=== PATIENT | female | born 1960 | race Caucasian/White ===

== ENCOUNTER → 2017-01-31 | Outpatient (CLI) | payer BC ==
[2017-01-31 13:10] LABS: BASO % 0.4 %; BASO ABS # 0.03 K/uL (0-0.2); COMPLETE YES; EOS % 0.7 %; HEMATOCRIT 45.5 % (37-47); IG% 0.3 %; LYMPH % 18.1 %; LYMPH ABS # 1.31 K/uL (1.2-3.4); MEAN CELL VOLUME 89.2 fL (80-100); MEAN CORPUSCULAR HEMOGLOBIN 29.2 pg (25-34); MEAN CORPUSCULAR HGB CONC 32.7 g/dl (32-36); MEAN PLATELET VOLUME 10.3 fL (7.4-10.4); MONO % 6.6 %; NEUT % 73.9 %; PLATELET COUNT 214 K/uL (130-400); WHITE BLOOD COUNT 7.23 K/uL (4.8-10.8)
[2017-01-31 13:29] LABS: URINE APPEARANCE CLEAR (CLEAR); URINE BILIRUBIN NEG (NEG); URINE COLOR YELLOW; URINE EPITHELIAL CELL AUTO >30 /lpf (0-5); URINE NITRITE NEG (NEG); UROBILINOGEN NEG (NEG)
[2017-01-31 13:32] LABS: MANUAL MICROSCOPIC REQUIRED? NO; REVIEW REQ? NO
[2017-01-31 16:22] LABS: ALT/SGPT 32 U/L (12-78); AST/SGOT 12 U/L (15-37); BLOOD UREA NITROGEN 14 mg/dl (7-18); BUN/CREATININE RATIO 18.1 (10-20); CALCIUM 8.8 mg/dl (8.5-10.1); CARBON DIOXIDE 29 mmol/L (21-32); CHLORIDE 107 mmol/L (98-107); CREATININE 0.77 mg/dl (0.60-1.20); GLUCOSE 98 mg/dl (70-99); POTASSIUM 3.9 mmol/L (3.5-5.1); SODIUM 142 mmol/L (136-145)
[2017-01-31 16:35] LABS: ALKALINE PHOSPHATASE 97 U/L (45-117); CHOLESTEROL 187 mg/dl (0-200); CHOLESTEROL/HDL RATIO 3.9; HDL CHOLESTEROL 48 mg/dl; LDL CHOLESTEROL CALCULATED 111 mg/dl; TRIGLYCERIDES 141 mg/dl (0-150); VERY LOW DENSITY LIPOPROT CALC 28 mg/dl
== END | disposition home or self-care (01) ==
LOC: C.LABMFLN 13:59
PROVIDERS: ATTEND Physician Assistant
DX: Z00.00 Encounter for general adult medical examination without abnormal findings (principal); Z13.220 Encounter for screening for lipoid disorders; Z13.29 Encounter for screening for other suspected endocrine disorder; Z13.1 Encounter for screening for diabetes mellitus

== ENCOUNTER → 2017-01-31 | Outpatient (CLI) | payer BC | END | disposition home or self-care (01) | LOC: C.PAPS 15:09 | PROVIDERS: ATTEND Physician Assistant | DX: Z01.419 Encounter for gynecological examination (general) (routine) without abnormal findings (principal) ==

== ENCOUNTER → 2017-03-23 | Outpatient (CLI) | payer BC | END | disposition home or self-care (01) | LOC: C.LABMFLN 08:23 | PROVIDERS: ATTEND Physician Assistant | DX: E03.9 Hypothyroidism, unspecified (principal) ==

== ENCOUNTER → 2017-05-22 | Outpatient (CLI) | payer BC | END | disposition home or self-care (01) | LOC: C.LABMFLN 08:30 | PROVIDERS: ATTEND Physician Assistant | DX: E03.9 Hypothyroidism, unspecified (principal) ==

== ENCOUNTER → 2017-07-17 | Outpatient (CLI) | payer BC ==
--- NOTE | 2017-07-17 15:45 | MAMMOGRAPHY REPORT ---
BILATERAL DIGITAL SCREENING MAMMOGRAM TOMOSYNTHESIS WITH CAD: 07/17/2017 CLINICAL HISTORY: Routine screening. Patient has no complaints. TECHNIQUE: Breast tomosynthesis in addition to standard 2D mammography was performed. Current study was also evaluated with a Computer Aided Detection (CAD) system. COMPARISON: Comparison is made to exams dated: 07/11/2016 mammogram, 07/06/2015 mammogram, 05/06/2014 m ammogram, 04/19/2013 mammogram, 04/16/2012 mammogram, and 04/11/2011 mammogram - [facility] ter. BREAST COMPOSITION: The tissue of both breasts is almost entirely fatty. FINDINGS: The parenchymal pattern is unchanged. No developing mass, architectural distortion or clus ter of suspicious microcalcifications is seen in either breast. IMPRESSION: ACR BI-RADS CATEGORY 2: BENIGN There is no mammographic evidence of malignancy. A 1 year screening mammogram is recommended. The pa tient will receive written notification of the results. Approximately 10% of breast cancers are not detected with mammography. A negative mammographic report should not delay biopsy if a clinically suggestive mass is present. Cassie Walker M.D. ay/:07/17/2017 12:32:16 Distance Education Coordinator: Perla FLOWERS(Kandice)(Piotr)([place]), [facility] letter sent: Normal 1/2 BI-RADS Code: ACR BI-RADS Category 2: Benign
== END | disposition home or self-care (01) ==
LOC: C.MAMM 09:53
PROVIDERS: ATTEND Physician Assistant
DX: Z12.31 Encounter for screening mammogram for malignant neoplasm of breast (principal)

== ENCOUNTER → 2018-02-05 | Outpatient (CLI) | payer OTHER, BC ==
[~2018-02-05] MED LIST: ASPI81TA28 PO; LEVO50TA6 PO; MULT-1018 PO
[2018-02-05 12:34] LABS: BASO % 0.4 %; BASO ABS # 0.03 K/uL (0-0.2); EOS % 1.6 %; EOS ABS # 0.11 K/uL (0-0.5); HEMATOCRIT 45.5 % (37-47); HEMOGLOBIN 15.1 g/dL (12.0-16.0); IG# 0.02 K/uL (0.00-0.02); LYMPH % 25.7 %; LYMPH ABS # 1.82 K/uL (1.2-3.4); MEAN CORPUSCULAR HEMOGLOBIN 29.2 pg (25-34); MEAN CORPUSCULAR HGB CONC 33.2 g/dl (32-36); MEAN PLATELET VOLUME 10.4 fL (7.4-10.4); MONO % 5.6 %; NEUT % 66.4 %; NEUT ABS # 4.71 K/uL (1.4-6.5); PLATELET COUNT 250 K/uL (130-400); RED CELL DISTRIBUTION WIDTH CV 12.6 % (11.5-14.5); RED CELL DISTRIBUTION WIDTH SD 39.9 fL (36.4-46.3); WHITE BLOOD COUNT 7.09 K/uL (4.8-10.8)
[2018-02-05 13:30] LABS: ALBUMIN 3.8 gm/dl (3.4-5.0); ALT/SGPT 29 U/L (12-78); AST/SGOT 19 U/L (15-37); BLOOD UREA NITROGEN 17 mg/dl (7-18); CALCIUM 8.8 mg/dl (8.5-10.1); CARBON DIOXIDE 28 mmol/L (21-32); GLUCOSE 85 mg/dl (70-99); POTASSIUM 3.9 mmol/L (3.5-5.1); SODIUM 140 mmol/L (136-145)
[2018-02-05 13:39] LABS: ALKALINE PHOSPHATASE 93 U/L (45-117); TOTAL PROTEIN 7.6 gm/dl (6.4-8.2)
== END | disposition home or self-care (01) ==
LOC: C.LABMFLN 09:38
PROVIDERS: ATTEND Physician Assistant
DX: Z00.00 Encounter for general adult medical examination without abnormal findings (principal); E01.0 Iodine-deficiency related diffuse (endemic) goiter

== ENCOUNTER → 2018-02-13 | Outpatient (CLI) | payer OTHER, BC ==
--- NOTE | 2018-02-13 13:12 | DIAGNOSTIC IMAGING REPORT ---
THYROID ULTRASOUND CLINICAL HISTORY: Thyromegaly. COMPARISON STUDY: Thyroid ultrasound February 26, 2008. TECHNIQUE: Sonography of the thyroid gland was performed. FINDINGS: The right thyroid lobe measures 6.2 x 2.4 x 3 cm and the left thyroid lobe measures 5.1 x 1.9 x 2.1 cm. The gland is heterogeneous and enlarged. Multiple thyroid nodules are noted. The largest is a 2.4 x 1.9 x 1.6 cm isoechoic right isthmus junction nodule. This is similar in size to exam of February 25, 2018. Note is made of several echogenic cystic and solid right lobe nodules measure up to 1.6 x 1.4 x 1.4 cm. These were not evident on prior exam. No left lobe nodules are present. IMPRESSION: Enlarged, multinodular thyroid gland. No significant change in the dominant right isthmus nodules since exam of February 26, 2008. Two new right lobe thyroid nodules. These nodules are nonspecific but none demonstrate suspicious imaging characteristics. Electronically signed by: Isidro Moyer M.D. 02/13/2018 1:11 PM Dictated Date/Time: 02/13/2018 1:04 PM
== END | disposition home or self-care (01) ==
LOC: C.ULTR 11:48
PROVIDERS: ATTEND Physician Assistant
DX: E01.0 Iodine-deficiency related diffuse (endemic) goiter (principal)

== ENCOUNTER → 2018-05-18 | Outpatient (CLI) | payer OTHER, BC | END | disposition home or self-care (01) | LOC: C.LABMFLN 08:22 | PROVIDERS: ATTEND Physician Assistant | DX: E03.9 Hypothyroidism, unspecified (principal) ==

== ENCOUNTER 2019-10-12 03:28 | Observation (INO) ==
[2019-10-12] MEDS ORDERED: NITROGLYCERIN 2% OINTMENT 30GM TUBE EXT STA (03:47)
[2019-10-12] MEDS ORDERED: ASPIRIN CHEW 324 MG PO STA (03:48)
[2019-10-12 04:15] LABS: Basophils # (auto) 0.02 K/uL (0-0.2); Basophils % (auto) 0.2 %; Eosinophils # (auto) 0.06 K/uL (0-0.5); Eosinophils % (auto) 0.7 %; Hematocrit (blood only) 44.9 % (37-47); Hemoglobin 14.7 g/dL (12.0-16.0); Immature Granulocytes # (auto) 0.02 K/uL (0.00-0.02); Immature Granulocytes % (auto) 0.2 %; Lymphocytes # (auto) 1.06 K/uL (1.2-3.4); Lymphocytes % (auto) 13.1 %; Mean Corpuscular Hemoglobin 29.5 pg (25-34); Mean Corpuscular Hgb Conc 32.7 g/dL (32-36); Monocytes # (auto) 0.45 K/uL (0.11-0.59); Monocytes % (auto) 5.6 %; Neutrophils # (auto) 6.47 K/uL (1.4-6.5); Neutrophils % (auto) 80.2 %; Platelet Count 202 K/uL (130-400); RDW Coefficient of Variation 13.3 % (11.5-14.5); RDW Standard Deviation 43.4 fL (36.4-46.3); Red Blood Count 4.99 M/uL (4.2-5.4); White Blood Count 8.08 K/uL (4.8-10.8)
[2019-10-12 04:35] LABS: Albumin Level 3.8 gm/dl (3.4-5.0); BUN Creatinine Ratio 21.5 (10-20); Creatinine Clr Calc Pharmacy 103.4 ml/min; Est GFR (African American) 90.9; Est GFR (Non-African American) 78.4; Partial Thromboplastin Time 25.8 Seconds (21.0-31.0); Potassium 4.2 mmol/L (3.5-5.1); Prothrombin Time 10.4 Seconds (9.0-12.0)
[2019-10-12] MEDS ORDERED: LABETALOL HCL IV 5 MG/ML 20ML IV STA (04:36)
[2019-10-12] MEDS ORDERED: FUROSEMIDE 40 MG/4 ML VIAL IV STA (04:36)
[2019-10-12 04:41] LABS: Bilirubin,Total 0.8 mg/dl (0.2-1); Globulin 3.9 gm/dl (2.5-4.0); Total Protein 7.7 gm/dl (6.4-8.2); Troponin I 0.067 ng/ml (0-0.045)
[2019-10-12 05:26] LABS: Appearance Urine Clear (Clear); Bacteria Urine Automated Negative (Negative); Bilirubin Urine Negative (Negative); Blood Urine Negative (Negative); Cast Urine Automated 0 /lpf (0-5); Color Urine Yellow; Glucose Urine UA Negative (Negative); Ketones Urine Negative (Negative); Leukocyte Esterase Urine 1+ (Negative); Nitrite Urine Negative (Negative); Protein Urine 1+ (Negative); RBC Urine Automated 0-4 /hpf (0-4); Specific Gravity Urine 1.016 (1.000-1.030); Urobilinogen Urine Negative (Negative)
--- NOTE | 2019-10-12 07:23 | XRay Report ---
XR chest 1V portable CLINICAL HISTORY: Dyspnea COMPARISON STUDY: No previous studies for comparison. FINDINGS: Lung volumes are normal. There is no pneumothorax. There is right pleural effusion is noted . Diffuse interstitial thickening indicates moderate interstitial pulmonary edema. There is mild card iomegaly. Right hilar fullness is noted. IMPRESSION: 1. Moderate interstitial pulmonary edema. Trace right pleural effusion. 2. Right hilar fullness which is probably due to pulmonary vessels. However, this should be assessed on follow-up radiographs. ACT 112: Negative or not required by law. Electronically signed by: Isidro Moyer M.D. 10/12/2019 7:22 AM
[2019-10-12] MEDS ORDERED: ONDANSETRON INJ 2 MG/ML 2 ML VIAL IV PRN (11:37)
[2019-10-12] MEDS ORDERED: ACETAMINOPHEN 325 MG TAB PO PRN (11:37)
[2019-10-12] MEDS ORDERED: POLYETHYLENE (MIRALAX) 17 GM PACK PO PRN (11:37)
--- NOTE | 2019-10-12 12:10 | History & Physical Report ---
Date of Service October 12, 2019 Assessment & Plan (1) Hypertensive urgency: BP > 200/100 on admission with shortness of breath, pulmonary edema breathing much improved after Lasix and Labetalol BP still high at 166/100 patient gives history of having some white coat hypertension but BP always better at the end of her PCP visit no history of HTN has family h/o HTN, CAD with deaths at young ages (father 51 and brother 59) will start on Lopressor 25mg BID, first dose now follow BP check echocardiogram hopeful that BP will be better tomorrow, will likely d/c home (2) Pulmonary edema: likely due to uncontrolled hypertension responded well to Lasix 40mg IV, > 2000cc out since this morning re-dose Lasix 40mg IV now, watch for response check routing echo today History of Present Illness Chief Complaint: I could not catch my breath Primary Care Provider: Neyda Pitts PA-C 59 yo female with relatively no medical history, just obesity, presented to the ED with c/o dyspnea, getting worse over the past week. No history of shortness of breath, no chronic lung issues. No cough or fever with the dyspnea, no chest pain or pressure noted. She noticed that the dyspnea only occurred with exertion at first, progressed to dyspnea at rest. She was having difficulty sleeping due to the dyspnea, her son finally convinced her to come to the ED for evaluation. She does not smoke. She has a history of some white coat hypertension but no true HTN diagnosis. She denies any sick contacts recently. She has been eating a lot of foods high in salt and sweets around the holidays. In the ED her initial BP was > 200/100 and she had evidence of pulmonary edema on CXR. She received a dose of Lasix IV and Labetalol IV and had a brisk responts, diuresed > 2 liters. Her breathing started to improve after that. Her blood pressure also improved but was high at 160/100. Allergies Allergy/AdvReac Type Severity Reaction Status Date / Time No Known Allergies Allergy Verified 10/12/19 04:01 Home Medications Home Medications Medication Instructions Recorded Confirmed Type aspirin 81 mg PO QAM 07/12/19 10/12/19 History levothyroxine 100 mcg tablet 100 mcg PO QAM #90 tab 07/18/19 10/12/19 Rx Past Med/Surg History Medical History Hypothyroidism Osteoarthritis Surgical History History of bilateral tubal ligation Family History (Updated 10/12/19 @ 12:09 by Azael Coronado DO) Grandmother (Paternal) Family history of diabetes mellitus Father , from [place] at age 51 Coronary heart disease Brother , from [place] age 59 Coronary heart disease Other No family history of adverse response to anesthesia Social History Preferred Language: [place] Communication Ability: Effective Terminal Computer Operator Required: No Beliefs That Will Affect Care: None Current Living Situation: Spouse and Family Current Living Situation Comment: Lives with and 1 son Other Information That Helps Us Care for You: No Feels Safe at Home: Yes Safety Concerns: Feels Safe At This Time Smoking Status: Former smoker Do You Dip or Chew Tobacco: No ; Smoking End Date: 14yrs old for a month or two. ; Second Hand Exposure: No ; Tobacco Cessation Education Requested by Patient: No Hx Alcohol Use: No Hx Substance Use: No Review of Systems Review of Systems: All systems reviewed & are unremarkable except as noted in HPI & below Constitutional: no fever, no chills, no sweats, no fatigue, no weakness and no weight gain Respiratory: + dyspnea and + dyspnea on exertion; no wheezing Cardiovascular: + dyspnea, + dyspnea on exertion and + edema; no chest pain, no orthopnea and no syncope Gastrointestinal: no abdominal pain, no nausea, no vomiting, no constipation and no diarrhea/loose stools Genitourinary: no dysuria, no difficulty urinating, no urinary frequency, no urinary hesitancy and no hematuria Integumentary: no rash Neurologic: no unsteadiness, no tingling, no tremor(s), no seizure-like activity, no headache(s) and no confusion Physical Exam Constitutional: well developed, well nourished and + obese; no acute distress Eyes: PERRL, conjunctivae normal, anicteric sclerae ENMT: external ear and nose normal, oropharynx normal Neck: trachea midline, no thyromegaly Respiratory: normal respiratory effort, lungs clear to auscultation Cardiovascular: Rate/Rhythm: regular rate and regular rhythm Heart Sounds: normal S1 and normal S2 Vessels: no JVD Extremities: normal capillary refill and + edema (trace in lower legs, bilaterally) Gastrointestinal (Abdomen): normal bowel sounds, soft, nontender, no hepatosplenomegaly Musculoskeletal: no cyanosis or clubbing, extremities motor strength 5/5 Skin: no rashes, warm and dry Neurologic: patellar DTR's 2+ bilat, sensation intact and PERRL, EOMI, accommodation nl, no face palsy, no dysarthria Psychiatric: A+Ox3, euthymic affect Lymphatic: no cervical or axillary lymphadenopathy Results & Data Vital Signs (Past 12 Hours) Vital Signs Temp Pulse Pulse Resp BP BP Pulse Ox 10/12/19 11:38 36.4 C L 85 18 166/100 H 94 10/12/19 11:00 87 20 145/100 H 95 10/12/19 10:30 90 30 H 146/99 H 96 10/12/19 10:00 73 18 156/87 H 94 10/12/19 09:30 72 15 146/101 H 94 10/12/19 09:01 79 18 95 10/12/19 09:00 83 13 143/100 H 94 10/12/19 08:31 74 15 94 10/12/19 08:30 74 19 139/96 94 10/12/19 08:01 74 16 94 10/12/19 08:00 74 19 135/87 94 10/12/19 07:31 74 16 92 10/12/19 07:30 75 19 139/89 91 10/12/19 07:01 75 16 92 10/12/19 07:00 80 16 141/90 H 92 10/12/19 06:31 75 17 92 10/12/19 06:30 74 16 143/93 H 95 10/12/19 06:19 88 20 153/96 H 94 10/12/19 06:17 89 28 H 153/96 H 94 10/12/19 06:00 85 17 92 10/12/19 05:39 85 16 154/105 H 95 10/12/19 05:12 85 19 157/104 H 94 10/12/19 05:11 88 22 157/104 H 92 10/12/19 04:30 102 H 26 H 173/106 H 93 10/12/19 04:19 95 10/12/19 04:16 105 H 29 H 185/120 H 94 10/12/19 04:00 104 H 22 94 10/12/19 03:49 106 H 22 95 10/12/19 03:47 105 H 20 203/132 H 95 10/12/19 03:33 36.7 C 114 H 26 H 213/131 H 93 Laboratory Results Laboratory Results - last 24 hr 10/12/19 10/12/19 10/12/19 04:06 04:06 04:06 WBC 8.08 RBC 4.99 Hgb 14.7 Hct 44.9 MCV 90.0 MCH 29.5 MCHC 32.7 RDW Std Deviation 43.4 RDW Coeff of Tay 13.3 Plt Count 202 MPV 10.0 Immature Gran % (Auto) 0.2 Neut % (Auto) 80.2 Lymph % (Auto) 13.1 Mcintosh % (Auto) 5.6 Eos % (Auto) 0.7 Baso % (Auto) 0.2 Immature Gran # (Auto) 0.02 Neut # (Auto) 6.47 Lymph # (Auto) 1.06 L Mcintosh # (Auto) 0.45 Eos # (Auto) 0.06 Baso # (Auto) 0.02 PT 10.4 INR 1.0 APTT 25.8 PTT Ratio 1.0 Sodium 143 Potassium 4.2 Chloride 110 H Carbon Dioxide 29 Anion Gap 4.0 BUN 17 Creatinine 0.81 Est Cr Clr Drug Dosing 103.4 Est GFR ( Amer) 90.9 Est GFR (Non-Af Amer) 78.4 BUN/Creatinine Ratio 21.5 H Glucose 136 H Calcium 9.0 Total Bilirubin 0.8 AST 24 ALT 48 Alkaline Phosphatase 111 Troponin I 0.067 H* Total Protein 7.7 Albumin 3.8 Globulin 3.9 Albumin/Globulin Ratio 1.0 Urine Color Urine Appearance Urine pH Ur Specific [place] Urine Protein Urine Glucose (UA) Urine Ketones Urine Blood Urine Nitrite Urine Bilirubin Urine Urobilinogen Ur Leukocyte Esterase Urine WBC (Auto) Urine RBC (Auto) U Hyaline Cast (Auto) U Epithel Cells (Auto) Urine Bacteria (Auto) Hepatitis C Ab Screen 10/12/19 10/12/19 04:07 05:07 WBC RBC Hgb Hct MCV MCH MCHC RDW Std Deviation RDW Coeff of Tay Plt Count MPV Immature Gran % (Auto) Neut % (Auto) Lymph % (Auto) Mcintosh % (Auto) Eos % (Auto) Baso % (Auto) Immature Gran # (Auto) Neut # (Auto) Lymph # (Auto) Mcintosh # (Auto) Eos # (Auto) Baso # (Auto) PT INR APTT PTT Ratio Sodium Potassium Chloride Carbon Dioxide Anion Gap BUN Creatinine Est Cr Clr Drug Dosing Est GFR ( Amer) Est GFR (Non-Af Amer) BUN/Creatinine Ratio Glucose Calcium Total Bilirubin AST ALT Alkaline Phosphatase Troponin I Total Protein Albumin Globulin Albumin/Globulin Ratio Urine Color Yellow Urine Appearance Clear Urine pH 7.0 Ur Specific [place] 1.016 Urine Protein 1+ H Urine Glucose (UA) Negative Urine Ketones Negative Urine Blood Negative Urine Nitrite Negative Urine Bilirubin Negative Urine Urobilinogen Negative Ur Leukocyte Esterase 1+ H Urine WBC (Auto) 10-30 H Urine RBC (Auto) 0-4 U Hyaline Cast (Auto) 0 U Epithel Cells (Auto) 10-20 H Urine Bacteria (Auto) Negative Hepatitis C Ab Screen Neg Diagnostic Findings XR chest 1V portable CLINICAL HISTORY: Dyspnea COMPARISON STUDY: No previous studies for comparison. FINDINGS: Lung volumes are normal. There is no pneumothorax. There is right pleural effusion is noted. Diffuse interstitial thickening indicates moderate interstitial pulmonary edema. There is mild cardiomegaly. Right hilar fullness is noted. IMPRESSION: 1. Moderate interstitial pulmonary edema. Trace right pleural effusion. 2. Right hilar fullness which is probably due to pulmonary vessels. However, this should be assessed on follow-up radiographs. Medications Administered Current Inpatient Medications Acetaminophen (Tylenol) 650 mg PO Q4H PRN PRN Reason: Pain or Fever Stop: 11/11/19 11:36 Aspirin (Ecotrin Ectab) 81 mg PO QAM [facility] Stop: 11/11/19 11:36 Enoxaparin Sodium (Lovenox) 40 mg SQ DAILY [facility] Stop: 11/11/19 11:36 Furosemide 40 mg/ Syringe 4 mls @ 4 mls/min IV ONE ONE Stop: 10/12/19 12:05 Levothyroxine Sodium (Synthroid) 100 mcg PO DAILYBB [facility] Stop: 11/11/19 11:36 Metoprolol Tartrate (Lopressor) 25 mg PO BID [facility] Stop: 11/11/19 11:59 Ondansetron HCl (Zofran) 4 mg IV Q6H PRN PRN Reason: Nausea Stop: 11/11/19 11:36 Polyethylene Glycol (Miralax Powder Packet) 17 gm PO DAILY PRN PRN Reason: Constipation Stop: 11/11/19 11:36 Code Status & VTE Plan Code Status full code VTE Prophylaxis Plan VTE Prophylaxis will be ordered: Yes PG Care Time/CCT Total # of Minutes Spent Total Time Spent with Patient: Total time spent is greater than 50% in coordination of care (as documented) at patient's floor/unit and/or counseling patient:
[2019-10-12] MEDS: LEVOTHYROXINE SODIUM 100 MCG TABLET PO SCH (12:13)
[2019-10-12] MEDS: ASPIRIN 81 MG ECTAB PO SCH (12:13)
[2019-10-12] MEDS: ENOXAPARIN INJ 40 MG/0.4 ML SYR SQ SCH (12:13)
[2019-10-12] MEDS ORDERED: FUROSEMIDE 40 MG in SYRINGE 0 ML IV ONE (12:30)
[2019-10-12] MEDS ORDERED: PERFLUTREN LIPID MICROSPHERE (DEFINITY) IV ONE (12:55)
[2019-10-12] MEDS: METOPROLOL TARTRATE 25 MG TAB PO SCH ×2 (13:13→20:16)
--- NOTE | 2019-10-12 18:42 | Emergency Department Note ---
Entered by Ar Childress acting as a scribe for Nat Tan MD History of Present Illness General Chief complaint: Respiratory Problems Stated complaint: HARD TO BREATHE Time Seen by Provider: 10/12/19 03:40 Source: patient History of Present Illness Onset (ago): day(s) (couple) Location: chest Pain Consistency: + other (worsening) Maximum Pain Intensity: 0 Quality: + other (SOB) Exacerbated By: + other (lying flat) Associated symptoms: + denies other symptoms (recent trips) The patient is a 59 y/o female who presents to the ED w/ CC of worsening shortness of breath beginning a couple days ago. The patient states she has had similar symptoms a year ago when she had flu-like symptoms, but it passed on its own. She reports she cannot lay flat because it worsens her symptoms. The patie nt notes she feels like she is retaining fluid. She states she is on aspirin daily and denies a history of a CVA, HTN, blood clots, and DM. She also denies a history of a stress test. The patient reports she last had her BP checked in July and was told it was mildly elevated. She notes she was a past smoker, and she has not been on a recent trip. The patient states she normally does not add extra salt to her food, and she did eat ham recently. Home Medications Home Medications Medication Instructions Recorded Confirmed Type aspirin 81 mg PO QAM 07/12/19 10/12/19 History levothyroxine 100 mcg tablet 100 mcg PO QAM #90 tab 07/18/19 10/12/19 Rx metoprolol tartrate 25 mg PO BID 30 Days #60 tab 10/13/19 Rx Allergies Allergy/AdvReac Type Severity Reaction Status Date / Time No Known Allergies Allergy Verified 10/12/19 04:01 Past Med/Surg History Medical History Hypothyroidism Osteoarthritis Surgical History History of bilateral tubal ligation Family History (Updated 10/12/19 @ 12:09 by Azael Coronado DO) Grandmother (Paternal) Family history of diabetes mellitus Father , from [place] at age 51 Coronary heart disease Brother , from [place] age 59 Coronary heart disease Other No family history of adverse response to anesthesia Social History Preferred Language: Romansh Communication Ability: Effective Community Relations Police Lieutenant Required: No Beliefs That Will Affect Care: None Current Living Situation: Spouse and Family Current Living Situation Comment: Lives with and 1 son Feels Safe at Home: Yes Smoking Status: Former smoker Second Hand Exposure: No ; Hx Alcohol Use: No Hx Substance Use: No Review of Systems See HPI for pertinent positives & negatives. and A total of 10 systems reviewed and were otherwise negative Physical Exam Vital Signs Vital Signs - 24 hr 10/12/19 03:33 10/12/19 03:47 10/12/19 03:49 Temperature 36.7 C Temperature Source Oral Pulse Rate 114 H 105 H 106 H Pulse Rate [Bilateral Apical] Pulse Rate from SpO2 Sensor 105 H 106 H Respiratory Rate 26 H 20 22 Respiratory Depth Deep Blood Pressure 213/131 H 203/132 H Blood Pressure [Left Arm] Blood Pressure Mean 158 149 Blood Pressure Mean [Left Arm] Blood Pressure Position Sitting Blood Pressure Position [Left Arm] Pulse Oximetry 93 95 95 Oxygen Delivery Method Room Air Sepsis Recent Fever Within 48 Hours No Sepsis Action Taken by Nursing No Action Required 10/12/19 04:00 10/12/19 04:16 10/12/19 04:19 Temperature Temperature Source Pulse Rate 104 H 105 H Pulse Rate [Bilateral Apical] Pulse Rate from SpO2 Sensor 105 H 105 H Respiratory Rate 22 29 H Respiratory Depth Blood Pressure 185/120 H Blood Pressure [Left Arm] Blood Pressure Mean 150 Blood Pressure Mean [Left Arm] Blood Pressure Position Blood Pressure Position [Left Arm] Pulse Oximetry 94 94 95 Oxygen Delivery Method Room Air Sepsis Recent Fever Within 48 Hours Sepsis Action Taken by Nursing 10/12/19 04:30 10/12/19 05:11 10/12/19 05:12 Temperature Temperature Source Pulse Rate 102 H 85 Pulse Rate [Bilateral Apical] 88 Pulse Rate from SpO2 Sensor 101 H 86 Respiratory Rate 26 H 22 19 Respiratory Depth Blood Pressure 173/106 H 157/104 H Blood Pressure [Left Arm] 157/104 H Blood Pressure Mean 124 118 Blood Pressure Mean [Left Arm] 121 Blood Pressure Position Blood Pressure Position [Left Arm] Sitting Pulse Oximetry 93 92 94 Oxygen Delivery Method Room Air Sepsis Recent Fever Within 48 Hours Sepsis Action Taken by Nursing 10/12/19 05:39 10/12/19 06:00 10/12/19 06:17 Temperature Temperature Source Pulse Rate 85 85 89 Pulse Rate [Bilateral Apical] Pulse Rate from SpO2 Sensor 85 83 89 Respiratory Rate 16 17 28 H Respiratory Depth Blood Pressure 154/105 H 153/96 H Blood Pressure [Left Arm] Blood Pressure Mean 114 105 Blood Pressure Mean [Left Arm] Blood Pressure Position Blood Pressure Position [Left Arm] Pulse Oximetry 95 92 94 Oxygen Delivery Method Sepsis Recent Fever Within 48 Hours Sepsis Action Taken by Nursing 10/12/19 06:19 10/12/19 06:30 10/12/19 06:31 Temperature Temperature Source Pulse Rate 74 75 Pulse Rate [Bilateral Apical] 88 Pulse Rate from SpO2 Sensor 75 75 Respiratory Rate 20 16 17 Respiratory Depth Blood Pressure 143/93 H Blood Pressure [Left Arm] 153/96 H Blood Pressure Mean 104 Blood Pressure Mean [Left Arm] 115 Blood Pressure Position Blood Pressure Position [Left Arm] Pulse Oximetry 94 95 92 Oxygen Delivery Method Room Air Sepsis Recent Fever Within 48 Hours Sepsis Action Taken by Nursing 10/12/19 07:00 10/12/19 07:01 10/12/19 07:30 Temperature Temperature Source Pulse Rate 80 75 75 Pulse Rate [Bilateral Apical] Pulse Rate from SpO2 Sensor 81 75 75 Respiratory Rate 16 16 19 Respiratory Depth Blood Pressure 141/90 H 139/89 Blood Pressure [Left Arm] Blood Pressure Mean 107 104 Blood Pressure Mean [Left Arm] Blood Pressure Position Blood Pressure Position [Left Arm] Pulse Oximetry 92 92 91 Oxygen Delivery Method Sepsis Recent Fever Within 48 Hours Sepsis Action Taken by Nursing 10/12/19 07:31 10/12/19 08:00 Temperature Temperature Source Pulse Rate 74 74 Pulse Rate [Bilateral Apical] Pulse Rate from SpO2 Sensor 74 75 Respiratory Rate 16 19 Respiratory Depth Blood Pressure 135/87 Blood Pressure [Left Arm] Blood Pressure Mean 107 Blood Pressure Mean [Left Arm] Blood Pressure Position Blood Pressure Position [Left Arm] Pulse Oximetry 92 94 Oxygen Delivery Method Sepsis Recent Fever Within 48 Hours Sepsis Action Taken by Nursing Vital signs reviewed. Noted to be hypertensive and tachycardic. General: Obese 59 year old female, in no significant distress. HEENT: No scleral icterus, PERRLA, neck supple. Atraumatic. Cardiovascular: Tachycardic rate and regular rhythm, no extra sounds. Pulmonary: Clear to auscultation bilaterally, slightly increased of breathing. Abdomen: Soft, nontender, nondistended, positive bowel sounds. Musculoskeletal: Atraumatic, pitting edema to the bilateral lower extremities. Neurologic: Patient awake alert and oriented x 3 Skin: Warm, dry, no rash Course Course 0342: Past medical records reviewed. The patient was evaluated in room A04B. A complete history and physical examination was performed. 0537: Upon reevaluation, the patient is resting comfortably. I discussed laboratory and radiographic results with her. She verbalized agreement of the treatment plan. The patient will be evaluated for further management and care. 0541: [facility] Hospitalist was paged. Administered Medications Discontinued Medications Aspirin (Aspirin) 324 mg PO NOW STA Stop: 10/12/19 03:49 Last Admin: 10/12/19 03:54 Dose: 324 mg Documented by: [id number] Aspirin (Ecotrin Ectab) 81 mg PO QAM JC Stop: 11/11/19 11:36 Last Admin: 10/13/19 08:55 Dose: 81 mg Documented by: [id number] Admin: 10/12/19 12:13 Dose: 81 mg Documented by: [id number] Enoxaparin Sodium (Lovenox) 40 mg SQ DAILY JC Stop: 11/11/19 11:36 Last Admin: 10/13/19 08:55 Dose: 40 mg Documented by: [id number] Admin: 10/12/19 12:13 Dose: 40 mg Documented by: [id number] Furosemide (Lasix) 40 mg IV NOW STA Stop: 10/12/19 04:37 Last Admin: 10/12/19 04:50 Dose: 40 mg Documented by: [id number] Furosemide (Lasix) 40 mg PO NOW ONE Stop: 10/13/19 09:51 Last Admin: 10/13/19 10:42 Dose: 40 mg Documented by: [id number] Furosemide 40 mg/ Syringe 4 mls @ 4 mls/min IV ONE ONE Stop: 10/12/19 12:31 Last Admin: 10/12/19 13:13 Dose: 4 mls/min Documented by: [id number] Labetalol HCl (Normodyne) 10 mg IV NOW STA Stop: 10/12/19 04:37 Last Admin: 10/12/19 04:49 Dose: 10 mg Documented by: [id number] Cosigned by: [id number] Levothyroxine Sodium (Synthroid) 100 mcg PO DAILYBB JC Stop: 11/11/19 11:36 Last Admin: 10/13/19 06:07 Dose: 100 mcg Documented by: [id number] Admin: 10/12/19 12:13 Dose: 100 mcg Documented by: [id number] Metoprolol Tartrate (Lopressor) 25 mg PO BID JC Stop: 11/11/19 11:59 Last Admin: 10/13/19 08:55 Dose: 25 mg Documented by: [id number] Admin: 10/12/19 20:16 Dose: 25 mg Documented by: [id number] Admin: 10/12/19 13:13 Dose: 25 mg Documented by: [id number] Nitroglycerin (Nitro-Bid 2%) 1 inch EXT NOW STA Stop: 10/12/19 03:48 Last Admin: 10/12/19 03:54 Dose: 1 inch Documented by: [id number] Perflutren Lipid Microsphere (Definity) 2 ml IV ONCE ONE Stop: 10/12/19 12:56 Last Admin: 10/12/19 12:55 Dose: 2 ml Documented by: [id number] Medical Decision Making Differential Diagnosis Differential diagnoses includes but is not limited to pneumonia, bronchitis, COPD/Asthma exacerbation, pneumothorax, pulmonary embolism, congestive heart failure, acute coronary syndrome Medical Records Attestation: I reviewed the patient's medical records. Home Medications Current Medication List: was personally reviewed by me Laboratory Data Attestation: I reviewed the patient's lab results. Result diagrams: 10/13/19 06:40 10/13/19 06:40 Lab Results 10/12/19 10/12/19 10/12/19 Range/Units 04:06 04:06 04:06 WBC 8.08 (4.8-10.8) K/uL RBC 4.99 (4.2-5.4) M/uL Hgb 14.7 (12.0-16.0) g/dL Hct 44.9 (37-47) % MCV 90.0 (80-100) fL MCH 29.5 (25-34) pg MCHC 32.7 (32-36) g/dL RDW Std Deviation 43.4 (36.4-46.3) fL RDW Coeff of Tay 13.3 (11.5-14.5) % Plt Count 202 (130-400) K/uL MPV 10.0 (7.4-10.4) fL Immature Gran % (Auto) 0.2 % Neut % (Auto) 80.2 % Lymph % (Auto) 13.1 % [place] % (Auto) 5.6 % Eos % (Auto) 0.7 % Baso % (Auto) 0.2 % Immature Gran # (Auto) 0.02 (0.00-0.02) K/uL Neut # (Auto) 6.47 (1.4-6.5) K/uL Lymph # (Auto) 1.06 L (1.2-3.4) K/uL [place] # (Auto) 0.45 (0.11-0.59) K/uL Eos # (Auto) 0.06 (0-0.5) K/uL Baso # (Auto) 0.02 (0-0.2) K/uL PT 10.4 (9.0-12.0) Seconds INR 1.0 (0.9-1.1) APTT 25.8 (21.0-31.0) Seconds PTT Ratio 1.0 Sodium 143 (136-145) mmol/L Potassium 4.2 (3.5-5.1) mmol/L Chloride 110 H (98-107) mmol/L Carbon Dioxide 29 (21-32) mmol/L Anion Gap 4.0 (3-11) BUN 17 (7-18) mg/dl Creatinine 0.81 (0.6-1.2) mg/dl Est Cr Clr Drug Dosing 103.4 ml/min Est GFR ( Amer) 90.9 Est GFR (Non-Af Amer) 78.4 BUN/Creatinine Ratio 21.5 H (10-20) Glucose 136 H (70-99) mg/dl Calcium 9.0 (8.5-10.1) mg/dl Total Bilirubin 0.8 (0.2-1) mg/dl AST 24 (15-37) U/L ALT 48 (12-78) U/L Alkaline Phosphatase 111 (45-117) U/L Troponin I 0.067 H* (0-0.045) ng/ml Total Protein 7.7 (6.4-8.2) gm/dl Albumin 3.8 (3.4-5.0) gm/dl Globulin 3.9 (2.5-4.0) gm/dl Albumin/Globulin Ratio 1.0 (0.9-2) Urine Color Urine Appearance (Clear) Urine pH (4.5-7.5) Ur Specific Wrens (1.000-1.030) Urine Protein (Negative) Urine Glucose (UA) (Negative) Urine Ketones (Negative) Urine Blood (Negative) Urine Nitrite (Negative) Urine Bilirubin (Negative) Urine Urobilinogen (Negative) Ur Leukocyte Esterase (Negative) Urine WBC (Auto) (0-5) /hpf Urine RBC (Auto) (0-4) /hpf U Hyaline Cast (Auto) (0-5) /lpf U Epithel Cells (Auto) (0-5) /lpf Urine Bacteria (Auto) (Negative) Hepatitis C Ab Screen (Neg) 10/12/19 10/12/19 Range/Units 04:07 05:07 WBC (4.8-10.8) K/uL RBC (4.2-5.4) M/uL Hgb (12.0-16.0) g/dL Hct (37-47) % MCV (80-100) fL MCH (25-34) pg MCHC (32-36) g/dL RDW Std Deviation (36.4-46.3) fL RDW Coeff of Tay (11.5-14.5) % Plt Count (130-400) K/uL MPV (7.4-10.4) fL Immature Gran % (Auto) % Neut % (Auto) % Lymph % (Auto) % [place] % (Auto) % Eos % (Auto) % Baso % (Auto) % Immature Gran # (Auto) (0.00-0.02) K/uL Neut # (Auto) (1.4-6.5) K/uL Lymph # (Auto) (1.2-3.4) K/uL [place] # (Auto) (0.11-0.59) K/uL Eos # (Auto) (0-0.5) K/uL Baso # (Auto) (0-0.2) K/uL PT (9.0-12.0) Seconds INR (0.9-1.1) APTT (21.0-31.0) Seconds PTT Ratio Sodium (136-145) mmol/L Potassium (3.5-5.1) mmol/L Chloride (98-107) mmol/L Carbon Dioxide (21-32) mmol/L Anion Gap (3-11) BUN (7-18) mg/dl Creatinine (0.6-1.2) mg/dl Est Cr Clr Drug Dosing ml/min Est GFR ( Amer) Est GFR (Non-Af Amer) BUN/Creatinine Ratio (10-20) Glucose (70-99) mg/dl Calcium (8.5-10.1) mg/dl Total Bilirubin (0.2-1) mg/dl AST (15-37) U/L ALT (12-78) U/L Alkaline Phosphatase (45-117) U/L Troponin I (0-0.045) ng/ml Total Protein (6.4-8.2) gm/dl Albumin (3.4-5.0) gm/dl Globulin (2.5-4.0) gm/dl Albumin/Globulin Ratio (0.9-2) Urine Color Yellow Urine Appearance Clear (Clear) Urine pH 7.0 (4.5-7.5) Ur Specific Wrens 1.016 (1.000-1.030) Urine Protein 1+ H (Negative) Urine Glucose (UA) Negative (Negative) Urine Ketones Negative (Negative) Urine Blood Negative (Negative) Urine Nitrite Negative (Negative) Urine Bilirubin Negative (Negative) Urine Urobilinogen Negative (Negative) Ur Leukocyte Esterase 1+ H (Negative) Urine WBC (Auto) 10-30 H (0-5) /hpf Urine RBC (Auto) 0-4 (0-4) /hpf U Hyaline Cast (Auto) 0 (0-5) /lpf U Epithel Cells (Auto) 10-20 H (0-5) /lpf Urine Bacteria (Auto) Negative (Negative) Hepatitis C Ab Screen Neg (Neg) Imaging Data Attestation: I personally reviewed and interpreted this imaging study as follows: My Impression: XR chest 1V: Asymmetric pulmonary edema. ECG Data Attestation: I personally reviewed and interpreted this ECG as follows: Indication: + SOB/dyspnea Rate (beats per minute): 103 Rhythm: + sinus tachycardia ECG Intervals/blocks: + Prolonged QT (slightly) ECG ST segments: + Nonspecific ST abnormalities (Inferior and lateral) ECG Findings: + Other (Left atrial enlargement.); no PACs and no PVCs Blood Pressure Blood Pressure Findings: Elevated blood pressure Blood Pressure Disposition: further management by hospitalist CELESTE Mcgarry This patient was evaluated and appeared to be in no significant distress. Pat ient was sitting up at the bedside stating it is uncomfortable for her to breathe lying flat. Patient has significant lower extremity edema which she does not believe is more severe than usual. Chest x-ray was obtained and to my interpretation reveals pulmonary edema. Patient's blood pressure is noted to be elevated. EKG reveals a sinus tachycardia at 103 without acute ischemic change.. Laboratory work reveals a slightly elevated troponin at 0.067. Patient was given 40 mg of IV Lasix and 1 inch of nitroglycerin paste was applied. Patient was given 324 mg of aspirin to chew. Patient has begun to diurese successfully. Case was discussed with the hospitalist service will evaluate the patient for further management. Patient and son are aware of the plan and agree. Impression & Plan CHF (congestive heart failure), Elevated troponin I level Discharge Plan Visit Data *Final* Discharge Date/Time: 10/12/19 10:59 Chief Complaint: Respiratory Problems Stated Complaint: HARD TO BREATHE ED Provider: Nat Tan Discharge Problem: CHF (congestive heart failure), Elevated troponin I level Patient Disposition: Admitted As Inpatient Condition: Good Discharge Instructions Interventions: ED Discharge Assessment Last Done: 10/12/19 10:59 Discharge Problem: CHF (congestive heart failure) Qualifiers: Heart failure type: unspecified Heart failure chronicity: unspecified Qualified Code(s): I50.9 - Heart failure, unspecified The scribe's documentation has been prepared under my direction and personally reviewed by me in its entirety. I confirm that the note above accurately reflects all work, treatment, procedures, and medical decision making performed by me.
[2019-10-13] MEDS: LEVOTHYROXINE SODIUM 100 MCG TABLET PO SCH (06:07)
[2019-10-13 06:58] LABS: Hematocrit (blood only) 43.7 % (37-47); Hemoglobin 14.2 g/dL (12.0-16.0); Mean Corpuscular Hemoglobin 29.3 pg (25-34); Mean Corpuscular Hgb Conc 32.5 g/dL (32-36); Mean Corpuscular Volume 90.1 fL (80-100); Platelet Count 211 K/uL (130-400); RDW Coefficient of Variation 13.6 % (11.5-14.5); RDW Standard Deviation 44.6 fL (36.4-46.3); Red Blood Count 4.85 M/uL (4.2-5.4); White Blood Count 6.98 K/uL (4.8-10.8)
[2019-10-13 07:34] LABS: BUN Creatinine Ratio 23.9 (10-20); Creatinine Clr Calc Pharmacy 94.1 ml/min; Est GFR (African American) 83.3; Est GFR (Non-African American) 71.9; Potassium 3.9 mmol/L (3.5-5.1)
[2019-10-13] MEDS: ENOXAPARIN INJ 40 MG/0.4 ML SYR SQ SCH (08:55)
[2019-10-13] MEDS: ASPIRIN 81 MG ECTAB PO SCH (08:55)
[2019-10-13] MEDS: METOPROLOL TARTRATE 25 MG TAB PO SCH (08:55)
[2019-10-13] MEDS ORDERED: FUROSEMIDE 40 MG TAB PO ONE (09:50)
--- NOTE | 2019-10-13 10:01 | Discharge Summary ---
Date of Service October 13, 2019 Admission HPI Per Admitting Provider 59 yo female with relatively no medical history, just obesity, presented to the ED with c/o dyspnea, getting worse over the past week. No history of shortness of breath, no chronic lung issues. No cough or fever with the dyspnea, no chest pain or pressure noted. She noticed that the dyspnea only occurred with exertion at first, progressed to dyspnea at rest. She was having difficulty sleeping due to the dyspnea, her son finally convinced her to come to the ED for evaluation. She does not smoke. She has a history of some white coat hypertension but no true HTN diagnosis. She denies any sick contacts recently. She has been eating a lot of foods high in salt and sweets around the holidays. In the ED her initial BP was > 200/100 and she had evidence of pulmonary edema on CXR. She received a dose of Lasix IV and Labetalol IV and had a brisk responts, diuresed > 2 liters. Her breathing started to improve after that. Her blood pressure also improved but was high at 160/100. Principal Diagnosis Hypertensive urgency Discharge Exam Constitutional well developed, well nourished and + obese; no acute distress Eyes PERRL, conjunctivae normal, anicteric sclerae ENMT external ear and nose normal, oropharynx normal Neck trachea midline, no thyromegaly Respiratory normal respiratory effort, lungs clear to auscultation Cardiovascular Rate/Rhythm: regular rate and regular rhythm Heart Sounds: normal S1 and normal S2 Vessels: no JVD Extremities: normal capillary refill; no edema Gastrointestinal (Abdomen) normal bowel sounds, soft, nontender, no hepatosplenomegaly Musculoskeletal no cyanosis or clubbing, extremities motor strength 5/5 Skin no rashes, warm and dry Neurologic patellar DTR's 2+ bilat, sensation intact and PERRL, EOMI, accommodation nl, no face palsy, no dysarthria Psychiatric A+Ox3, euthymic affect Lymphatic no cervical or axillary lymphadenopathy Discharge Data Allergies Allergy/AdvReac Type Severity Reaction Status Date / Time No Known Allergies Allergy Verified 10/12/19 04:01 Consultations 10/12/19 05:41 ED Decision to Admit Stat Hospital Course (1) Hypertensive urgency: BP > 200/100 on admission with shortness of breath, pulmonary edema breathing much improved after Lasix and Labetalol in the ED BP still high at 166/100 patient gives history of having some white coat hypertension but BP always better at the end of her PCP visit she did not want to believe that she has HTN, just stress causing it I explained that stress does not cause diastolic BP to go up has family h/o HTN, CAD with deaths at young ages (father 51 and brother 59) troponin without any significant rise good response to Lopressor 25mg BID echo with preserved EF d/c home on Lopressor 25mg BID educated patient on importance of low salt diet, try to get daily exercise encouraged her to try to lose 10-20% of body weight to help treat hypertension she admits that she normally eats whatever she wants because she enjoys eating follow up with PCP in one week for blood pressure check on Lopressor (2) Pulmonary edema: likely due to uncontrolled hypertension responded well to Lasix 40mg IV for two doses, > 5000cc out during admission echo with preserved EF would not call this acute heart failure, it is a result of her uncontrolled hypertension trace edema in legs still, gave her a Lasix 40mg tablet to take when she gets home pulmonary edema should be preventable with blood pressure control and low sodium diet (3) Obesity: educated patient on value of weight loss in treating hypertension reasonable goal is 10-20% of her body weight which can be achieved by reducing her caloric intake encouraged her to walk for 30 minutes at least 4 times a week, try for every day Total Time Total Time Spent Total Time Spent (In Minutes): 33 minutes Discharge Plan Discharge Items Patient Disposition: Home - Self-Care Reason For Visit: ACUTE HEART FAILURE Discharge Diagnosis: Hypertensive urgency Acute pulmonary edema due to uncontrolled hypertension Condition on Discharge: Good Goals: take Toprol as prescribed to control blood pressure follow a sodium restriction Activity: Resume your previous activity Non-emergency contact: Primary Care Provider Call non-emergency contact if: you have any medication questions and your symptoms worsen Follow-up/Referrals: Neyda Pitts PA-C [Primary Care Provider] - Diet: Heart Healthy and Low Sodium (2gm) Addtl Attending Provider Instructions: Medications: - METOPROLOL: take 25mg twice a day, next dose is due this evening - LASIX: take a dose of 40mg when you get home Hypertension, uncontrolled, causing hypertensive urgency and some pulmonary edema pulmonary edema resolved with Lasix IV, removed 5 liters of fluid echocardiogram shows that your heart function is preserved, so the fluid accumulation was due to the uncontrolled hypertension you still have a little fluid to give, take Lasix 40mg by mouth when you get home started on metoprolol with good response will recommend that you continue on metoprolol 25mg in the morning and evening, next dose due this evening you need to follow up with Janneth ANDERSON in one week, call her office tomorrow to request a visit by the end of the week need to get blood pressure checked in the office important that you follow a low sodium diet, no more than 2gm a day, read food labels to see how much sodium is in the food you eat avoid eating out too much because restaurants put a lot of sodium in their food, if you do eat out try eating half portions Obesity: 10-20% weight loss would help control blood pressure as well you could lose 30-40 lbs simply eating less, your body is used to a certain amount of calories to maintain your current weight Exercise: recommend walking 20-30 minutes constant at least 4 days a week this is good for your heart, combined with weight loss can help lower blood pressure naturally FOLLOW UP - call office of Janneth Pitts tomorrow morning to get a hospital follow up appt for the end of the week Pending Studies at Discharge: No Stand-Alone Forms: My [facility] [employer], Smoking Cessation Medications and DC Order Prescriptions: New metoprolol tartrate 25 mg tablet 25 mg PO BID 30 Days Qty: 60 RF: 2 Continued aspirin 81 mg tablet,delayed release (DR/EC) 81 mg PO QAM RF: 0 No Action levothyroxine 100 mcg tablet 100 mcg PO QAM Qty: 90 RF: 0 Discharge Orders: Discharge Order (Routine); Ordered 10/13/19 Ordered By: Azael Coronado Admission Data Admit Date/Time: 10/12/19 08:01 Attending Provider: Azael Coronado Admit Provider: Azael Coronado Primary Care Provider: Neyda Pitts Other Providers: Amor Batista Other Interventions: Discharge Summary Assessment (RN) Last Done: 10/13/19 10:19 DC Date/Time DO NOT enter until pt leaves facility: 10/13/19 11:09
== END 2019-10-13 11:09 | disposition home or self-care (01) ==
LOC: ED 03:28 → 2W 03:28